=== PATIENT | male | born 1960 | race Caucasian/White ===

== ENCOUNTER 2022-09-24 14:27 | Outpatient (CLI) | payer BC ==
--- NOTE | 2022-09-24 17:00 | XRAY Report ---
PROCEDURE: Hand 3 View RT INDICATIONS: THUMB PAIN,RIGHT TECHNIQUE: 3 views of the hand(s) acquired. COMPARISON: None FINDINGS: Bones: No fractures or dislocations. No suspicious bony lesions. Multifocal joint space narrowing and periarticular osteophyte formation, most predominantly at the scaphotrapezial and first metacarpa l joints. Soft tissues: No suspicious soft tissue calcifications. IMPRESSION: Osteoarthritis. No acute fracture. No osseous lesion. If symptoms and/or clinical suspicion for patho logy continue, further assessment with repeat plain films, or advanced imaging (e.g., CT, MRI, or bon e scan) is recommended for further assessment. Reviewed by: Kayleigh Andrews MD on 09/24/2022 4:58 PM PST Approved by: Kayleigh Andrews MD on 09/24/2022 4:58 PM PST Station ID: [id number]
== END 2022-09-24 14:28 | disposition home or self-care (01) ==
LOC: DI 14:27
PROVIDERS: ATTEND Registered Nurse
DX: M19.041 Primary osteoarthritis, right hand (principal); M18.11 Unilateral primary osteoarthritis of first carpometacarpal joint, right hand